=== PATIENT | female | born 1980 | race Caucasian/White ===

== ENCOUNTER 2018-01-18 15:06 | Inpatient (IN) | payer OTHER ==
[2018-01-18] MEDS: ONDANSETRON 4 MG INJ IV (16:49)
[2018-01-18] MEDS: FAMOTIDINE 20 MG INJ IV (16:49)
[2018-01-18] MEDS: SOD CHLORIDE 0.9% 1,000 ML IV ×2 (16:51→21:09)
[2018-01-18 16:52] LABS: ADD MAN DIFF? NO
[2018-01-18 16:57] LABS: URINE PH (Dip) POC 5.5 (5.0-8.5)
[2018-01-18 16:57] LABS: URINE BLOOD (Dip) POC 2+ (NEGATIVE); URINE GLUCOSE (Dip) POC Negative (NEGATIVE); URINE KETONES (Dip) POC Negative (NEGATIVE); URINE LEUKOCYTE EST (Dip) POC 2+ (NEGATIVE); URINE NITRITE (Dip) POC Negative (NEGATIVE); URINE TOTAL PROTEIN POC Trace (NEGATIVE)
[2018-01-18 16:58] LABS: WHITE BLOOD COUNT 10.9 10^3/ul (4.8-10.8)
[2018-01-18 16:58] LABS: BASOPHIL # 0.1 10^3/ul (0.0-0.1); BASOPHILS % 0.6 % (0.0-2.0); EOSINOPHILS # 0.4 10^3/ul (0.0-0.5); HEMATOCRIT 33.6 % (37.0-47.0); HEMOGLOBIN 10.4 g/dl (12.0-16.0); LYMPHOCYTES # 3.3 10^3/ul (0.8-2.9); LYMPHOCYTES % 30.3 % (15.0-51.0); MEAN CORPUSCULAR HEMOGLOBIN 23.8 pg (29.0-33.0); MEAN CORPUSCULAR VOLUME 76.9 fl (82.0-101.0); MEAN PLATELET VOLUME 9.3 fl (7.4-10.4); MONOCYTE # 0.9 10^3/ul (0.3-0.9); MONOCYTES % 8.6 % (0.0-11.0); NEUTROPHIL # 6.1 10^3/ul (1.6-7.5); PLATELET COUNT 388 10^3/UL (140-415); RED BLOOD COUNT 4.37 10^6/ul (4.20-5.40); RED CELL DISTRIBUTION WIDTH 18.8 % (11.5-14.5)
[2018-01-18 17:18] LABS: ALANINE AMINOTRANSFERASE 22 IU/L (13-69); ALBUMIN 4.4 g/dl (3.3-4.9); ALKALINE PHOSPHATASE 83 IU/L (42-121); ANION GAP 18 (8-16); ASPARTATE AMINO TRANSFERASE 17 IU/L (15-46); BLOOD UREA NITROGEN 14 mg/dl (7-20); CALCIUM 9.3 mg/dl (8.4-10.2); CARBON DIOXIDE 25 mmol/L (21-31); CHLORIDE 108 mmol/L (97-110); CREATININE 0.64 mg/dl (0.44-1.00); GLUCOSE 107 mg/dl (70-220); INR 1.01; PARTIAL THROMBOPLASTIN TIME 32.2 Sec (25.0-35.0); POTASSIUM 3.8 mmol/L (3.5-5.1); PROTIME 13.4 Sec (11.9-14.9); SODIUM 147 mmol/L (135-144); TOTAL PROTEIN 8.8 g/dl (6.1-8.1)
[2018-01-18 17:26] LABS: ADD UMIC YES; UR ASCORBIC ACID NEGATIVE (NEGATIVE); UR BILIRUBIN (Dip) NEGATIVE (NEGATIVE); UR BLOOD (Dip) 2+ mg/dL (NEGATIVE); UR CLARITY CLOUDY (CLEAR); UR COLOR YELLOW (YELLOW); UR GLUCOSE (Dip) NEGATIVE (NEGATIVE); UR KETONES (Dip) NEGATIVE (NEGATIVE); UR LEUKOCYTE ESTERASE (Dip) 3+ Leu/ul (NEGATIVE); UR MUCUS FEW /HPF (NONE SEEN); UR NITRITE (Dip) NEGATIVE (NEGATIVE); UR RBC 4 /HPF (0-5); UR SPECIFIC GRAVITY (Dip) 1.028 (1.003-1.030); UR SQUAMOUS EPITHELIAL CELL MODERATE /HPF (FEW); UR TOTAL PROTEIN (Dip) 1+ mg/dl (NEGATIVE); UR UROBILINOGEN (Dip) NEGATIVE (NEGATIVE); UR WBC 7 /HPF (0-5)
[2018-01-18 17:27] LABS: B-TYPE NATRIURETIC PEPTIDE 16 PG/ML (0-125)
[2018-01-18 17:30] LABS: TROPONIN-I < 0.012 ng/ml (0.00-0.12)
[2018-01-18] MEDS: LIDOCAINE/MYLANTA 40 ML BTL PO (17:51)
[2018-01-18] MEDS: ASPIRIN 81 MG TAB PO (17:52)
[2018-01-18] MEDS: NITROGLYCERIN (SL) 0.4 MG TAB SL (18:53)
[2018-01-18] MEDS: CEFTRIAXONE 1 GM/50 ML (PMX) 50 ML IVPB (20:10)
[2018-01-18] MEDS: SODIUM CHLORIDE 0.9% 1L BAG IV* (21:21)
[2018-01-18] MEDS ORDERED: BISACODYL (EC) 5 MG TAB PO (21:30)
[2018-01-18] MEDS ORDERED: DOCUSATE SODIUM 100 MG CAP PO (21:30)
[2018-01-18] MEDS ORDERED: NACL 0.9% 3 ML SYG IV (21:30)
[2018-01-18] MEDS ORDERED: NITROGLYCERIN (SL) 0.4 MG TAB SL (21:30)
[2018-01-18] MEDS ORDERED: ONDANSETRON 4 MG INJ IV (21:30)
[2018-01-18] MEDS ORDERED: morphine 2 MG INJ IV (21:30)
[2018-01-18 22:17] LABS: LACTIC ACID 1.6 mmol/L (0.5-2.0)
[2018-01-18 22:17] LABS: CREATINE KINASE 66 IU/L (23-200)
[2018-01-18 22:29] LABS: CK INDEX 0.4; CK-MB 0.28 ng/ml (0.0-2.4)
[2018-01-18 22:34] LABS: TROPONIN-I < 0.012 ng/ml (0.00-0.12)
[2018-01-19 00:53] LABS: LACTIC ACID 0.9 mmol/L (0.5-2.0)
[2018-01-19 03:13] LABS: ADD MAN DIFF? NO
[2018-01-19 03:16] LABS: BASOPHILS % 0.5 % (0.0-2.0); EOSINOPHILS # 0.3 10^3/ul (0.0-0.5); EOSINOPHILS % 3.9 % (0.0-7.0); HEMATOCRIT 29.5 % (37.0-47.0); HEMOGLOBIN 9.1 g/dl (12.0-16.0); LYMPHOCYTES # 3.5 10^3/ul (0.8-2.9); MEAN CORPUSCULAR HGB CONC 30.8 g/dl (32.0-37.0); MEAN CORPUSCULAR VOLUME 77.8 fl (82.0-101.0); MEAN PLATELET VOLUME 9.5 fl (7.4-10.4); MONOCYTE # 0.6 10^3/ul (0.3-0.9); MONOCYTES % 6.8 % (0.0-11.0); NEUTROPHIL # 4.1 10^3/ul (1.6-7.5); NEUTROPHILS % 47.4 % (39.0-77.0); PLATELET COUNT 319 10^3/UL (140-415); RED BLOOD COUNT 3.79 10^6/ul (4.20-5.40); RED CELL DISTRIBUTION WIDTH 19.3 % (11.5-14.5)
[2018-01-19 03:16] LABS: WHITE BLOOD COUNT 8.5 10^3/ul (4.8-10.8)
[2018-01-19 03:36] LABS: LACTIC ACID 1.1 mmol/L (0.5-2.0)
[2018-01-19 03:41] LABS: IRON 36 ug/dl (35-150)
[2018-01-19 03:46] LABS: ALANINE AMINOTRANSFERASE 23 IU/L (13-69); ALBUMIN 3.6 g/dl (3.3-4.9); ALBUMIN/GLOBULIN RATIO 1.09; ALKALINE PHOSPHATASE 67 IU/L (42-121); ANION GAP 12 (8-16); ASPARTATE AMINO TRANSFERASE 21 IU/L (15-46); BLOOD UREA NITROGEN 11 mg/dl (7-20); CALCIUM 8.2 mg/dl (8.4-10.2); CARBON DIOXIDE 26 mmol/L (21-31); CHLORIDE 110 mmol/L (97-110); CHOL/HDL RATIO 4.6 RATIO; CHOLESTEROL 138 mg/dl (100-200); CREATINE KINASE 73 IU/L (23-200); CREATININE 0.59 mg/dl (0.44-1.00); GLUCOSE 104 mg/dl (70-220); HDL CHOLESTEROL 30 mg/dl (34-82); LDL CHOLESTEROL,CALCULATED 83 mg/dl; POTASSIUM 3.9 mmol/L (3.5-5.1); SODIUM 144 mmol/L (135-144); TOTAL PROTEIN 6.9 g/dl (6.1-8.1); TRIGLYCERIDES 125 mg/dl (0-149)
[2018-01-19 03:50] LABS: CK INDEX 0.5; CK-MB 0.36 ng/ml (0.0-2.4)
[2018-01-19 03:51] LABS: % IRON SATURATION 10 % SAT (22-52); TOTAL IRON BINDING CAPACITY 365 ug/dl (241-421); TROPONIN-I < 0.012 ng/ml (0.00-0.12)
[2018-01-19 04:15] LABS: FERRITIN 10.1 ng/ml (6.2-137.0)
[2018-01-19 05:26] LABS: HEMOGLOBIN A1C 5.8 % (0-5.9)
[2018-01-19 08:03] LABS: ADD MAN DIFF? NO
[2018-01-19 08:14] LABS: BASOPHILS % 0.5 % (0.0-2.0); EOSINOPHILS # 0.3 10^3/ul (0.0-0.5); EOSINOPHILS % 3.8 % (0.0-7.0); HEMATOCRIT 31.1 % (37.0-47.0); HEMOGLOBIN 9.4 g/dl (12.0-16.0); LYMPHOCYTES # 2.6 10^3/ul (0.8-2.9); LYMPHOCYTES % 29.5 % (15.0-51.0); MEAN CORPUSCULAR HEMOGLOBIN 23.6 pg (29.0-33.0); MEAN CORPUSCULAR HGB CONC 30.2 g/dl (32.0-37.0); MEAN CORPUSCULAR VOLUME 77.9 fl (82.0-101.0); MEAN PLATELET VOLUME 9.5 fl (7.4-10.4); MONOCYTE # 0.6 10^3/ul (0.3-0.9); MONOCYTES % 6.4 % (0.0-11.0); NEUTROPHIL # 5.2 10^3/ul (1.6-7.5); NEUTROPHILS % 59.5 % (39.0-77.0); PLATELET COUNT 335 10^3/UL (140-415); RED BLOOD COUNT 3.99 10^6/ul (4.20-5.40); RED CELL DISTRIBUTION WIDTH 19.1 % (11.5-14.5)
[2018-01-19 08:14] LABS: WHITE BLOOD COUNT 8.8 10^3/ul (4.8-10.8)
[2018-01-19 14:25] LABS: ADD MAN DIFF? NO
[2018-01-19 14:28] LABS: BASOPHIL # 0.1 10^3/ul (0.0-0.1); BASOPHILS % 0.6 % (0.0-2.0); EOSINOPHILS # 0.3 10^3/ul (0.0-0.5); EOSINOPHILS % 3.4 % (0.0-7.0); HEMATOCRIT 34.9 % (37.0-47.0); HEMOGLOBIN 10.7 g/dl (12.0-16.0); LYMPHOCYTES # 2.8 10^3/ul (0.8-2.9); LYMPHOCYTES % 27.2 % (15.0-51.0); MEAN CORPUSCULAR HEMOGLOBIN 23.8 pg (29.0-33.0); MEAN CORPUSCULAR HGB CONC 30.7 g/dl (32.0-37.0); MEAN CORPUSCULAR VOLUME 77.7 fl (82.0-101.0); MEAN PLATELET VOLUME 9.1 fl (7.4-10.4); MONOCYTE # 0.7 10^3/ul (0.3-0.9); MONOCYTES % 6.7 % (0.0-11.0); NEUTROPHIL # 6.2 10^3/ul (1.6-7.5); NEUTROPHILS % 61.7 % (39.0-77.0); PLATELET COUNT 373 10^3/UL (140-415); RED BLOOD COUNT 4.49 10^6/ul (4.20-5.40); RED CELL DISTRIBUTION WIDTH 19.5 % (11.5-14.5)
[2018-01-19 14:28] LABS: WHITE BLOOD COUNT 10.1 10^3/ul (4.8-10.8)
[2018-01-19] MEDS: SOD FERRIC GLUC COMPLX 125 MG in SOD CHLORIDE 0.9% 100 ML IVPB (16:09)
[2018-01-19] MEDS: ACETAMINOPHEN 325 MG TAB PO (16:15)
[2018-01-19 19:46] LABS: ADD MAN DIFF? NO
[2018-01-19 19:47] LABS: WHITE BLOOD COUNT 10.1 10^3/ul (4.8-10.8)
[2018-01-19 19:47] LABS: BASOPHIL # 0.1 10^3/ul (0.0-0.1); BASOPHILS % 0.7 % (0.0-2.0); EOSINOPHILS # 0.3 10^3/ul (0.0-0.5); EOSINOPHILS % 3.4 % (0.0-7.0); HEMOGLOBIN 10.1 g/dl (12.0-16.0); LYMPHOCYTES # 3.6 10^3/ul (0.8-2.9); LYMPHOCYTES % 35.6 % (15.0-51.0); MEAN CORPUSCULAR HEMOGLOBIN 23.8 pg (29.0-33.0); MEAN CORPUSCULAR HGB CONC 30.6 g/dl (32.0-37.0); MEAN CORPUSCULAR VOLUME 77.8 fl (82.0-101.0); MONOCYTE # 0.8 10^3/ul (0.3-0.9); NEUTROPHIL # 5.3 10^3/ul (1.6-7.5); PLATELET COUNT 334 10^3/UL (140-415); RED BLOOD COUNT 4.24 10^6/ul (4.20-5.40); RED CELL DISTRIBUTION WIDTH 19.4 % (11.5-14.5)
[2018-01-19] MEDS: CEFTRIAXONE 1 GM/50 ML (PMX) 50 ML IVPB (23:44)
[2018-01-20] MEDS: LEVOFLOXACIN 750 MG TABLET PO (11:49)
== END 2018-01-20 15:02 | disposition home or self-care (01) | DRG 313 ==
LOC: MS3 22:06 → E/R 15:06 → MS3 21:03
PROVIDERS: Family Medicine
DX: R07.89 Other chest pain (principal); N39.0 Urinary tract infection, site not specified; D50.9 Iron deficiency anemia, unspecified; R73.03 Prediabetes; E66.9 Obesity, unspecified; N93.8 Other specified abnormal uterine and vaginal bleeding
CPT/HCPCS: 36415; 71045; 76830; 80053; 80061; 81001; 81003; 81025; 82550; 82553; 82728; 83036; 83540; 83605; 83735; 83880; 84443; 84484; 85025; 85610; 85730; 86850; 86900; 86901; 87040; 87086; 93005; 93306; 96374; 96375; 99291-25

== ENCOUNTER 2018-12-07 00:02 | Emergency (ER) | payer OTHER ==
[2018-12-07 02:08] LABS: ADD MAN DIFF? NO; BASOPHIL # 0.1 10^3/ul (0.0-0.1); BASOPHILS % 0.5 % (0.0-2.0); EOSINOPHILS # 0.4 10^3/ul (0.0-0.5); EOSINOPHILS % 3.7 % (0.0-7.0); HEMATOCRIT 38.6 % (37.0-47.0); HEMOGLOBIN 12.4 g/dl (12.0-16.0); LYMPHOCYTES # 3.2 10^3/ul (0.8-2.9); LYMPHOCYTES % 31.9 % (15.0-51.0); MEAN CORPUSCULAR HEMOGLOBIN 28.6 pg (29.0-33.0); MEAN CORPUSCULAR HGB CONC 32.1 g/dl (32.0-37.0); MEAN CORPUSCULAR VOLUME 88.9 fl (82.0-101.0); MONOCYTE # 0.8 10^3/ul (0.3-0.9); MONOCYTES % 7.5 % (0.0-11.0); NEUTROPHIL # 5.6 10^3/ul (1.6-7.5); PLATELET COUNT 331 10^3/UL (140-415); RED BLOOD COUNT 4.34 10^6/ul (4.20-5.40); RED CELL DISTRIBUTION WIDTH 12.7 % (11.5-14.5)
[2018-12-07 02:31] LABS: ANION GAP 9 (5-13); BLOOD UREA NITROGEN 8 mg/dl (7-20); CALCIUM 9.5 mg/dl (8.4-10.2); CARBON DIOXIDE 30 mmol/L (21-31); CHLORIDE 104 mmol/L (97-110); CREATININE 0.57 mg/dl (0.44-1.00); Estimated GFR > 60 mL/min (>60); GLUCOSE 114 mg/dl (70-220); POTASSIUM 3.8 mmol/L (3.5-5.1); SODIUM 143 mmol/L (135-144)
[2018-12-07 02:43] LABS: TROPONIN-I < 0.012 ng/ml (0.000-0.120)
[2018-12-07] MEDS: KETOROLAC 15 MG INJ IV (04:24)
== END 2018-12-07 04:33 | disposition home or self-care (01) ==
LOC: E/R 04:33
DX: M25.512 Pain in left shoulder (principal)
CPT/HCPCS: 36415; 71045; 80048; 84484; 85025; 93005; 96374; 99284-25

== ENCOUNTER 2019-01-30 09:53 | Day surgery (SDC) | payer OTHER ==
[2019-01-30] MEDS ORDERED: LIDOCAINE 2% (SDV) 5 ML INJ (11:11)
[2019-01-30] MEDS ORDERED: PROPOFOL 60 ML (11:11)
[2019-01-30] MEDS ORDERED: LABETALOL HCL 20MG INJ IV (11:30)
[2019-01-30] MEDS ORDERED: hydrALAzine 20 MG INJ IV (11:30)
[2019-01-30] MEDS ORDERED: EPHEDrine SULFATE 50 MG/5 ML SYG IV (11:30)
[2019-01-30] MEDS ORDERED: FENTAnyl 50 MCG/ML VIAL IV (11:30)
[2019-01-30] MEDS ORDERED: ONDANSETRON 4 MG INJ IV (11:30)
== END 2019-01-30 12:23 | disposition home or self-care (01) ==
LOC: GIL 09:53
DX: R19.4 Change in bowel habit (principal); K64.8 Other hemorrhoids; K29.50 Unspecified chronic gastritis without bleeding
CPT/HCPCS: 43239; 88305; 88312

== ENCOUNTER 2019-02-18 00:53 | Emergency (ER) | payer OTHER | END 2019-02-18 06:05 | disposition home or self-care (01) | LOC: FTE 00:53 | DX: J02.9 Acute pharyngitis, unspecified (principal) | CPT/HCPCS: 87880; 99283 ==